=== PATIENT | female | born 1950 | race Caucasian/White ===

== ENCOUNTER 2022-04-13 20:54 | Inpatient (IN) | payer MEDICARE, SELFPAY ==
[2022-04-13 20:56] VITALS: BP 143/81; PULSE 74; RESP 22; TEMP 36.7; O2SAT 95; BMI 32.8
[2022-04-13 20:59] VITALS: O2SAT 99
--- NOTE | 2022-04-13 21:21 | ED.VIS.CHEST ---
HPI History of Present Illness Chief Complaint: Chest Pain Informant: patient Onset/Context/Timing Onset: Today Activity at onset: sudden Timing: Intermittent Quality: Positive for Dull Location: Substernal Worsened By: Nothing Relieved By: Nothing Associated Symptoms: Positive for Nausea, Vomiting and Lightheadedness Narrative Narrative: Patient presents with chest pain that began today. Patient states it began suddenly. Patient states that her pacemaker defibrillator fired today 3 times. Patient states she was sitting and resting when this began. Patient states nothing makes it worse and nothing makes it better. Patient admits to some nausea and vomiting. Patient admits to some pain in her back. Patient admits to some lightheadedness patient was recently hospitalized at [facility] where she had her pacemaker defibrillator placed. Patient was discharged to [facility]. [facility] Medical History (Updated 04/14/22 @ 00:[address] Hung Tovar, DO) Chronic back pain Coronary artery disease Presence of combination internal cardiac defibrillator (ICD) and pacemaker Home Medications amiodarone 200 mg tablet 200 mg 1XD 04/14/22 [History Last Taken Unknown] doxycycline monohydrate 100 mg tablet 100 mg PO BID 04/14/22 [History Last Taken Unknown] duloxetine 30 mg capsule,delayed release (Cymbalta) 30 mg PO BID 04/14/22 [History Last Taken Unknown] furosemide 40 mg tablet (Lasix) 40 mg PO BID 04/14/22 [History Last Taken Unknown] levothyroxine 25 mcg tablet (Synthroid) 25 mcg PO DAILY 04/14/22 [History Last Taken Unknown] metolazone 2.5 mg tablet 2.5 mg PO QODAY 04/14/22 [History Last Taken Unknown] mexiletine 150 mg capsule 150 mg BID 04/14/22 [History Last Taken Unknown] midodrine 10 mg tablet 10 mg PO TID 04/14/22 [History Last Taken Unknown] omeprazole 40 mg capsule,delayed release 40 mg PO DAILY 04/14/22 [History Last Taken Unknown] potassium chloride 20 mEq tablet,extended release 40 meq PO BID 04/14/22 [History Last Taken Unknown] pravastatin 40 mg tablet 40 mg PO QHS 04/14/22 [History Last Taken Unknown] spironolactone 50 mg tablet (Aldactone) 50 mg PO 1XD 04/14/22 [History Last Taken Unknown] sucralfate 1 gram tablet (Carafate) 1 g PO 1XD 04/14/22 [History Last Taken Unknown] tamsulosin 0.4 mg capsule (Flomax) 0.4 mg PO QHS 04/14/22 [History Last Taken Unknown] vancomycin 250 mg/5 mL oral syringe (FOR ORAL USE ONLY) 125 mg PO Q6H 04/14/22 [History Last Taken Unknown] warfarin 2.5 mg tablet 2.5 mg PO DAILY 04/14/22 [History Last Taken Unknown] Allergy/AdvReac Type Severity Reaction Status Date / Time carvedilol [From Coreg] Allergy NEEDS Verified 04/13/22 20:59 FOLLOW-UP Gadolinium-MRI Contrast Allergy NEEDS Verified 04/13/22 20:59 Medium FOLLOW-UP [contrast dye] Social History Smoking Status: Former smoker ROS ROS ED Constitutional Constitutional ED: Denies chills or fever(s) Eyes Eyes: Denies blurry vision or change in vision ENT ENT ED: Denies rhinorrhea or sore throat Cardiovascular Cardiovascular: Reports chest pain and palpitations Respiratory/Chest Respiratory/Chest: Denies cough or dyspnea Gastrointestinal Gastrointestinal: Denies abdominal pain, nausea or vomiting Genitourinary Genitourinary ED: Reports dysuria; Denies hematuria Musculoskeletal Musculoskeletal: Reports back pain and neck pain Integumentary Reports rash; Denies abscess Neurologic Neurologic: Denies headache(s) or weakness Allergic/Immunologic Allergic/Immunologic ED: Denies mouth swelling or urticaria EXAM Physical Exam Const Vital Signs: 04/13/22 20:56 04/13/22 21:01 04/13/22 21:33 Temperature 98.1 F Temperature Source Temporal Pulse Rate 74 74 Respiratory Rate 22 H 15 Respiratory Effort Short of Breath Blood Pressure 143/81 H 131/100 H Blood Pressure Mean 101 110 Blood Pressure Source Blood Pressure Position Blood Pressure Location Pulse Ox 95 99 Oxygen Delivery Method Room Air Room Air 04/13/22 20:59 04/13/22 23:02 04/13/22 23:08 Temperature 98.4 F Temperature Source Temporal Pulse Rate 71 71 Respiratory Rate 17 18 Respiratory Effort Blood Pressure 116/98 H 116/98 H Blood Pressure Mean 104 104 Blood Pressure Source Monitor Blood Pressure Position Semi-Fowlers Blood Pressure Location Right Arm Pulse Ox 99 97 98 Oxygen Delivery Method Room Air Room Air Room Air 04/13/22 23:15 04/14/22 00:23 Temperature 98.1 F Temperature Source Temporal Pulse Rate 73 72 Respiratory Rate 16 19 H Respiratory Effort Blood Pressure 119/79 120/69 Blood Pressure Mean 92 86 Blood Pressure Source Monitor Blood Pressure Position Semi-Fowlers Blood Pressure Location Right Arm Pulse Ox 97 94 Oxygen Delivery Method Room Air Room Air Positive well nourished, well developed and obese General Appearance ED: well developed Nutritional Appearance: obese HEENT normocephalic and atraumatic Eyes PERRL and EOMs intact bilaterally Neck supple and no JVD Chest Wall palpation of chest normal Resp normal respiratory effort and clear to auscultation bilaterally Effort and Inspection: Negative for respiratory distress Cardio regular rate and regular rhythm GI normal to inspection, nondistended, normoactive bowel sounds, soft to palpation, non-tender and non-distended Extremity normal to inspection General Extremety ED: Negative for edema or tenderness General Extremity: Negative for edema Neuro oriented x3, CN's II-XII intact bilaterally and no sensory deficits noted Sensorium / Orientation: awake and alert Motor Exam: strength 5/5 throughout Psych mental status grossly normal MDM MDM MDM Narrative Medical decision making narrative: Patient's pacemaker was interrogated. Patient had 7 shocks today. Patient then converted back to sinus rhythm with each defibrillation. Patient had an episode here where she had a short run of ventricular tachycardia. Patient then converted spontaneously back to a sinus rhythm. EKG will be obtained to assess for cardiac dysrhythmia and ischemia. CBC will be obtained to assess for leukocytosis and anemia. Basic metabolic profile will be obtained to assess for electrolyte abnormality and renal function. Magnesium will be ordered to assess for hypomagnesemia. Troponin will be obtained to assess for cardiac ischemia. PA and lateral chest x-ray will be obtained to assess for pneumonia and congestive heart failure. PT with INR and PTT will be obtained to assess for coagulation status. Lab Data Attestation: I reviewed the patient's lab results. Lab results narrative: CBC was reviewed and showed a mild leukocytosis of 11.6. The remainder was within normal limits. PT was INR and PTT were reviewed. Pro time was 22.4 and INR is 2.0. PTT is 31.5. Basic metabolic profile was reviewed. Sodium was 129, chloride was 88, potassium was 2.5, BUN was 20 and creatinine was 1.07. Glucose was slightly elevated at 128. High-sensitivity troponin was reviewed and was 22. Labs: Laboratory Results - last 24 hr 04/13/22 04/13/22 04/13/22 21:05 21:05 21:05 WBC 11.6 H RBC 4.49 Hgb 13.1 Hct 38.9 MCV 86.6 MCH 29.2 MCHC 33.7 D RDW Std Deviation 51.4 H RDW Coeff of Em 16.3 H Plt Count 260 MPV 9.2 Immature Gran % (Auto) 1.100 H Neut % (Auto) 69.4 Lymph % (Auto) 17.9 L Fountain % (Auto) 9.9 Eos % (Auto) 1.0 Baso % (Auto) 0.7 Absolute Neuts (auto) 8.0 H Absolute Lymphs (auto) 2.07 Nucleated RBC % 0 PT 22.4 H INR 2.0 APTT 31.5 Sodium 129 L Potassium 2.5 L* Chloride 88 L Carbon Dioxide 29.0 Anion Gap 12 BUN 20 H Creatinine 1.07 H Estim Creat Clear Calc 48.25 Est GFR (MDRD) Af Amer 65 Est GFR (MDRD) Non-Af 54 L BUN/Creatinine Ratio 18.7 Glucose 128 H Calcium 7.6 L Magnesium 1.1 L Troponin I High Sens 22 Radiography Chest X-Ray - ED: 2 View, Read by ED Physician, Read by Radiologist, No Acute Disease and Chronic Changes Diagnostic Testing: Clinical Impression(s) from Imaging Studies Chest X-Ray 04/13/22 22:07 IMPRESSION: Pleural effusions. Otherwise no acute findings. Electronically Signed: Elizabeth Garcia MD at 22:31 EST Reading Location ID and State: [id number] / Tel , Service support , EKG Initial EKG: Attestation: I personally reviewed and interpreted this EKG as follows: Interpretation: Paced (70) and Non-Specific ST Changes Comments: EKG was obtained. On my interpretation, it shows a ventricular paced rhythm with a rate of 70. QRS interval was slightly prolonged at 168 ms. QTc interval was 514 ms. There is left axis deviation at -38. There are no acute ST or T wave changes noted. There are no prior EKGs available for comparison. Prior: No Prior Treatment and Re-Evaluation Narrative: The pacemaker defibrillator was interrogated. At the time of the interrogation patient was noted to have 7 defibrillations today. Patient is supposed to be on amiodarone and mexiletine. Here in the emergency department, patient had approximately 6 more defibrillations. Patient was given oral and IV potassium here. Patient was given a dose of amiodarone and was started on amiodarone drip. Case was discussed with the transfer line at [facility]. When the patient was discharged from [facility] recently, there was question as to whether the patient wanted to be made hospice or wanted further treatment. I discussed this with the patient and her family. At this time, patient wants everything done except to be intubated. I discussed with the patient if she would want chest compressions if her heart would completely stop and she said she would want that. The transfer center for [facility] will attempt to find the patient a bed at [facility]. Patient was accepted to the ICU waiting list to the service of Dr. Carrasco at [facility] in [place]. However, transfer center stated that patient would not be able to be transferred there tonight since they have no beds available at this time. Transfer center said that possibly tomorrow evening a bed may become available. I discussed the case with the hospitalist here. Patient will be admitted here pending transfer to [facility]. Patient and family understand and are agreeable with the plan. All questions were answered. Critical Care Time Critical Care Time: Yes Critical care time (excluding procedures): 30-74 minutes (37), Including time spent:, Discussing w/Patient &/or Family/Cigar Inspector, Discussing w/Consultants, Arranging Admission or Transfer and Performing Direct Patient Care at Bedside Discharge Plan Triage Chief Complaint: Chest Pain ED Provider: Hung Tovar Dx/Rx/DC Orders Clinical Impression: Ventricular fibrillation, Hypokalemia, Hypomagnesemia Prescriptions: No Action furosemide [Lasix] 40 mg Tablet 40 mg PO BID metolazone 2.5 mg Tablet 2.5 mg PO QODAY pravastatin 40 mg Tablet 40 mg PO QHS amiodarone 200 mg tablet 200 mg 1XD sucralfate [Carafate] 1 gram Tablet 1 g PO 1XD warfarin [Coumadin] 2.5 mg Tablet 2.5 mg PO DAILY omeprazole 40 mg Capsule,Delayed Release(Dr/Ec) 40 mg PO DAILY doxycycline monohydrate 100 mg Tablet 100 mg PO BID levothyroxine [Synthroid] 25 mcg Tablet 25 mcg PO DAILY tamsulosin [Flomax] 0.4 mg Capsule 0.4 mg PO QHS mexiletine 150 mg Capsule 150 mg BID spironolactone [Aldactone] 50 mg Tablet 50 mg PO 1XD midodrine 10 mg Tablet 10 mg PO TID Rx Instructions: do not give last dose of day after 6PM or within 4 hrs of bedtime duloxetine [Cymbalta] 30 mg Capsule,Delayed Release(Dr/Ec) 30 mg PO BID vancomycin 250 mg/5 mL Syringe 125 mg PO Q6H potassium chloride 20 mEq Tablet Extended Release 40 meq PO BID Primary Care Provider: Daysi Perea Referrals: [facility] Doctor,Out of [Non-Staff] - Disposition Disposition: Acute Care Hospital Discharge Location: [facility]
[2022-04-13 21:33] VITALS: BP 131/100; PULSE 74; RESP 15; O2SAT 99
--- NOTE | 2022-04-13 21:33 | ED.RN ---
Called [facility] and they are going to fax over the signed DNR for patient
[2022-04-13] MEDS: Ondansetron 4 MG/2 ML Vial IV (21:47)
[2022-04-13 21:49] LABS: Absolute Lymphocyte Count 2.07 X10^3/uL (0.83-4.51); Basophil# 0.08 X10^3/uL; Basophil% 0.7 % (0-1); Eosinophil# 0.12 X10^3/uL; Hematocrit 38.9 % (37-47); Hemoglobin 13.1 g/dL (12.0-15.0); Lymphocyte # 2.07 X10^3/ul (0.83-4.51); Lymphocyte % 17.9 % (19-41); Mean Corp Hgb Conc 33.7 g/dL (32-36); Mean Corpuscular Hgb 29.2 pg (27.0-32.0); Mean Corpuscular Volume 86.6 fL (81-99); Mean Platelet Vol. 9.2 fl (6.2-12.0); Monocyte# 1.15 X10^3/uL; Monocyte% 9.9 % (0-10); NRBC Flagged by Analyzer 0 % (0-5); Neutrophil # 8.01 X10^3/uL (2.7-7.7); Neutrophil % 69.4 % (47-70); Platelet Count 260 K/mm3 (150-450); RBC Distribution Width CV 16.3 % (11.6-14.6); RBC Distribution Width SD 51.4 fl (35.1-43.9); Red Blood Count 4.49 M/mm3 (4.2-5.4); White Blood Count 11.6 K/mm3 (4.4-11.0)
[2022-04-13] MEDS: Morphine 2 MG/ML Syringe IV (21:58)
[2022-04-13 22:01] LABS: Prothrombin Time (Protime)PT. 22.4 SECONDS (11.7-14.9)
[2022-04-13 22:02] LABS: Partial Thromboplast Time 31.5 Seconds (24.1-36.2)
--- NOTE | 2022-04-13 22:07 | RAD_ITS ---
INDICATION: chest pain EXAMINATION/TECHNIQUE: X-RAY - XR Chest 2 Views COMPARISON: None. FINDINGS: LINES/DEVICES: Cardiac pacemaker/AICD. Wires are intact. LUNGS: Small bilateral pleural effusions. No vascular congestion or pulmonary consolidation. No pneumothorax. MEDIASTINUM AND CARDIOVASCULAR STRUCTURES: Cardiac silhouette not enlarged. Central airways and mediastinal contour are unremarkable. BONES AND SOFT TISSUES: Unremarkable. RAD/Chest PA and Lateral IMPRESSION: Pleural effusions. Otherwise no acute findings. Electronically Signed: Elizabeth Garcia MD at 22:31 EST Reading Location ID and State: [id number] / Tel , Service support ,
[2022-04-13 22:15] LABS: Anion Gap 12 (5-15); BUN 20 mg/dL (7-18); BUN/Creat Ratio 18.7 RATIO (10-20); Calcium,Total 7.6 mg/dL (8.5-10.1); Chloride 88 mmol/L (98-107); Creatinine, Serum 1.07 mg/dL (0.55-1.02); EST Glomerular Filtration Rate 54 mL/min (>60); Est Glom Filt Rate - Afr Amer 65 mL/min (>60); Estimated Creatinine Clearance 48.25 ml/min; Glucose 128 mg/dL (74-106); Magnesium 1.1 mg/dL (1.6-2.6); Potassium 2.5 mmol/L (3.5-5.1); Sodium Level 129 mmol/L (136-145); Troponin-I HS (w/2H Reflex) 22 pg/mL (3.0-54.0)
[2022-04-13] MEDS: Potassium Chloride 10mEq/100mL 10 MEQ/100 ML IV.SOLN. 100 MEQ IV BOLUS ×2 (22:54→23:56)
[2022-04-13 23:02] VITALS: BP 116/98; PULSE 71; RESP 17; TEMP 36.9; O2SAT 97
[2022-04-13 23:08] VITALS: BP 116/98; PULSE 71; RESP 18; O2SAT 98
[2022-04-13 23:15] VITALS: BP 119/79; PULSE 73; RESP 16; TEMP 36.7; O2SAT 97
[2022-04-13] MEDS: Amiodarone 360 MG in Dextrose 5% Viaflo Bag 192.8 ML 16.7 MG CONT INF (23:15)
[2022-04-13 23:40] LABS: Reflex Troponin-HS? (from REC) Y
--- NOTE | 2022-04-13 23:46 | PCM.HP.STD ---
HPI - General General Date of Admission: 04/13/22 Date of Service: 04/13/22 Chief Complaint: Chest pain, device firing. HPI Narrative The patient is a 71 y/o F w/ PMHx: COPD, Systolic CHF/Cardiomyopathy unclear type, HTN, HLD, Anxiety and Depression, Nonobstructive CAD, Diabetes mellitus type II, GERD, Suspected PAF s/p prior attempted ablation on coumadin therapy, Ongoing issues with urinary retention with chronic indwelling martinez catheter over the last several weeks on flomax, Recent Dx clostridium difficile colitis on oral vancomycin, Ventricular arrhythmia status post AICD placement on amiodarone as well as mexiletine with several issues over the last 2 months of recurrent device firing requiring several readjustments with recent discharge to assisted home from [facility] with similar presentation with significant electrolyte disturbances who now presents to the [facility] ED on 04/13/22 secondary to recurrent near syncopal sensation with lightheadedness, dizziness with associated nausea as well as emesis with recurrent ventricular arrhythmia prompting her device to fire with at least 7 times firing at the facility prior to ED presentation and ongoing while in the ED noted to have occurred at least 6-7 times prompting facility transition ED for evaluation. Patient notes that once her rhythm resolves her symptoms usually improve when she feels returned to baseline. Work-up in the ED included T98.1, heart rate 74, BP 143/81, respiratory rate 22, 95% room air, intermittent device firing while in the ED with near syncopal sensations, CBC with WC 11.6, hemoglobin 13.1, platelet 260 with increased immature granulocytes with left shift, coags with INR 2.0, BMP with sodium 129, potassium 2.5, chloride 88, BUN/creatinine 20/1.07, glucose 128, calcium 7.6, magnesium 1.1, troponin initially 22 with repeat delta 27, chest x-ray with small bilateral pleural effusions otherwise with no acute cardiopulmonary findings, EKG with paced, nonspecific ST changes with no acute evidence of ischemia with no comparison available, AICD/pacemaker device interrogated while in the emergency room with evidence of significant ventricular arrhythmia. In the ED patient ministered full-strength aspirin therapy, magnesium 4 mg IV x1, potassium 40 mill equivalent p.o. x1, Zofran 4 mg IV x1, morphine 2 mg IV x1, amiodarone bolus and drip. ED physician did discuss case with [facility] and patient was accepted by Dr. Franklin however unfortunately there were no beds and [place] noted that likely there may not be any availability for 24 to 48 hours therefore patient transiently admitted to [facility] pending transfer bed availability. In the ED lengthy discussions ensued and patient does report that with most recent evaluation at [facility] she had at that time been evaluated by hospice but was of not felt an appropriate candidate but this is believed to be set somewhat of a confusion as patient is obviously appropriate for hospice but likely she had not been at that time appropriate for an inpatient hospice setting. Patient had even discussed discontinuation of her AICD device mode but this has been deferred at her discharge for unclear reasons. During lengthy discussions in the ED patient confirms she is DNR CCA no intubation but is interested again with discussions with hospice and would consider even not being transferred as currently arranged with hospice home transition if able with discontinuation of the AICD device settings. [facility] Medical History (Updated 04/14/22 @ 02:[address] Abbey Cunningham MD) Anxiety and depression Cardiomyopathy Chronic back pain COPD (chronic obstructive pulmonary disease) Coronary artery disease Diabetes mellitus, type 2 Former tobacco use HLD (hyperlipidemia) HTN (hypertension) Hypothyroidism PAF (paroxysmal atrial fibrillation) Presence of combination internal cardiac defibrillator (ICD) and pacemaker Systolic CHF Ventricular arrhythmia Home Medications amiodarone 200 mg tablet 200 mg 1XD 04/14/22 [History Last Taken Unknown] doxycycline monohydrate 100 mg tablet 100 mg PO BID 04/14/22 [History Last Taken Unknown] duloxetine 30 mg capsule,delayed release (Cymbalta) 30 mg PO BID 04/14/22 [History Last Taken Unknown] furosemide 40 mg tablet (Lasix) 40 mg PO BID 04/14/22 [History Last Taken Unknown] levothyroxine 25 mcg tablet (Synthroid) 25 mcg PO DAILY 04/14/22 [History Last Taken Unknown] metolazone 2.5 mg tablet 2.5 mg PO QODAY 04/14/22 [History Last Taken Unknown] mexiletine 150 mg capsule 150 mg BID 04/14/22 [History Last Taken Unknown] midodrine 10 mg tablet 10 mg PO TID 04/14/22 [History Last Taken Unknown] omeprazole 40 mg capsule,delayed release 40 mg PO DAILY 04/14/22 [History Last Taken Unknown] potassium chloride 20 mEq tablet,extended release 40 meq PO BID 04/14/22 [History Last Taken Unknown] pravastatin 40 mg tablet 40 mg PO QHS 04/14/22 [History Last Taken Unknown] spironolactone 50 mg tablet (Aldactone) 50 mg PO 1XD 04/14/22 [History Last Taken Unknown] sucralfate 1 gram tablet (Carafate) 1 g PO 1XD 04/14/22 [History Last Taken Unknown] tamsulosin 0.4 mg capsule (Flomax) 0.4 mg PO QHS 04/14/22 [History Last Taken Unknown] vancomycin 250 mg/5 mL oral syringe (FOR ORAL USE ONLY) 125 mg PO Q6H 04/14/22 [History Last Taken Unknown] warfarin 2.5 mg tablet 2.5 mg PO DAILY 04/14/22 [History Last Taken Unknown] Allergy/AdvReac Type Severity Reaction Status Date / Time carvedilol [From Coreg] Allergy NEEDS Verified 04/13/22 20:59 FOLLOW-UP Gadolinium-MRI Contrast Allergy NEEDS Verified 04/13/22 20:59 Medium FOLLOW-UP [contrast dye] Family History (Updated 04/14/22 @ 02:[address] Abbey Cunningham MD) Mother Heart disease Father Heart disease Son Heart disease CHF (congestive heart failure) Surgical History (Updated 04/14/22 @ 02:[address] Abbey Cunningham MD) History of cardiac radiofrequency ablation History of hysterectomy History of implantable cardioverter-defibrillator (ICD) placement S/P placement of cardiac pacemaker Social History (Updated 04/14/22 @ 02:[address] Abbey Cunningham MD) household members: spouse Smoking Status: Former smoker how long ago did patient quit smoking: Quit ~ 25 year prior, smoked 1 ppd since teen until quit. alcohol intake: never substance use type: does not use ROS ROS Narrative Admission Review of Systems: CONSTITUTIONAL: No weight loss, fever, chills, + weakness or fatigue. HEENT: + Lightheadedness, dizziness. Eyes: No visual loss, blurred vision, double vision or yellow sclerae. Ears, Nose, Throat: No hearing loss, sneezing, congestion, runny nose or sore throat. SKIN: No rash or itching, lesions, wounds. CARDIOVASCULAR: + Lightheadedness, dizziness, edema, palpitations, syncopal episodes, chest discomfort with device firing as expected, no orthopnea. RESPIRATORY: No shortness of breath, cough or sputum, wheezing, hemoptysis. GASTROINTESTINAL: + anorexia, nausea, vomiting, no diarrhea, abdominal pain, melena, BRBPR. GENITOURINARY: + Urinary retention with chronic indwelling Martinez. No dysuria, frequency, urgency. NEUROLOGICAL: + Headache, dizziness, lightheadedness, syncopal events. No paralysis, ataxia, numbness or tingling in the extremities, focal weakness, change in bowel or bladder control, seizure. MUSCULOSKELETAL: + muscle, back pain, joint pain or stiffness. HEMATOLOGIC: + anemia, bleeding or bruising. LYMPHATICS: No enlarged nodes. No history of splenectomy. PSYCHIATRIC: + history of depression or anxiety. ENDOCRINOLOGIC: No reports of sweating, cold or heat intolerance. No polyuria or polydipsia. ALLERGIES: No history of asthma, hives, eczema or rhinitis. Vital Signs Vital Signs Vital Signs: 04/13/22 20:56 04/13/22 21:01 04/13/22 21:33 Temperature 98.1 F Temperature Source Temporal Pulse Rate 74 74 Respiratory Rate 22 H 15 Respiratory Effort Short of Breath Blood Pressure 143/81 H 131/100 H Blood Pressure Mean 101 110 Blood Pressure Source Blood Pressure Position Blood Pressure Location Pulse Ox 95 99 Oxygen Delivery Method Room Air Room Air 04/13/22 20:59 04/13/22 23:02 04/13/22 23:08 Temperature 98.4 F Temperature Source Temporal Pulse Rate 71 71 Respiratory Rate 17 18 Respiratory Effort Blood Pressure 116/98 H 116/98 H Blood Pressure Mean 104 104 Blood Pressure Source Monitor Blood Pressure Position Semi-Fowlers Blood Pressure Location Right Arm Pulse Ox 99 97 98 Oxygen Delivery Method Room Air Room Air Room Air 04/13/22 23:15 Temperature 98.1 F Temperature Source Temporal Pulse Rate 73 Respiratory Rate 16 Respiratory Effort Blood Pressure 119/79 Blood Pressure Mean 92 Blood Pressure Source Monitor Blood Pressure Position Semi-Fowlers Blood Pressure Location Right Arm Pulse Ox 97 Oxygen Delivery Method Room Air Weight Weight: 209 lb 3.499 oz Body Mass Index (BMI) 32.8 Physical Exam Narrative Physical Examination: General: Awake, alert, oriented x 3 and cooperative, seated upright in ED bed, fatigued, ill-appearing individual, appears older than stated age. Skin: Normal color, normal turgor, no icterus, no cyanosis except occasional staged ecchymoses, bilateral lower extremity venous stasis skin changes. HEENT: AT/NC, EOMI, PERRLA, mildly dry MM, no carotid bruits or JVD noted. Lungs: Diminished, greater bases, no evidence of any respiratory distress, no rales, ronchi or wheezing. Heart: Currently regular/paced; no gallop, rub audible. Abdomen: Soft, NTTP, very mild distention with no fluid wave, distant normal BS, positive HM. Extremities: No cyanosis, no clubbing, bilateral pedal 2 mid hoang 2+ pitting edema which is chronic for patient she notes Neurological: Patient awake, alert, oriented as noted, cognitive function appears intact; pupils equally reactive to light and accommodation, cranial nerves II-XII grossly normal, moving all 4 extremities, no focal deficits, strength severely global decrease secondary to acute presentation and underlying comorbidities. Psychiatric: Affect appears flat, fatigued, no acute evidence of depressive or anxiety feelings but does have underlying history. Results Lab / Micro Data Result Diagrams: 04/13/22 21:05 04/13/22 21:05 Labs: Laboratory Results - last 24 hr 04/13/22 21:05: WBC 11.6 H, RBC 4.49, Hgb 13.1, Hct 38.9, MCV 86.6, MCH 29.2, MCHC 33.7 D, RDW Std Deviation 51.4 H, RDW Coeff of Em 16.3 H, Plt Count 260, MPV 9.2, Immature Gran % (Auto) 1.100 H, Neut % (Auto) 69.4, Lymph % (Auto) 17.9 L, [place] % (Auto) 9.9, Eos % (Auto) 1.0, Baso % (Auto) 0.7, Absolute Neuts (auto) 8.0 H, Absolute Lymphs (auto) 2.07, Nucleated RBC % 0 04/13/22 21:05: PT 22.4 H, INR 2.0, APTT 31.5 04/13/22 21:05: Sodium 129 L, Potassium 2.5 L*, Chloride 88 L, Carbon Dioxide 29.0, Anion Gap 12, BUN 20 H, Creatinine 1.07 H, Estim Creat Clear Calc 48.25, Est GFR (MDRD) Af Amer 65, Est GFR (MDRD) Non-Af 54 L, BUN/Creatinine Ratio 18.7, Glucose 128 H, Calcium 7.6 L, Magnesium 1.1 L, Troponin I High Sens 22 Radiology Impression Chest X-Ray 04/13/22 22:07 IMPRESSION: Pleural effusions. Otherwise no acute findings. Electronically Signed: Elizabeth Garcia MD at 22:31 EST Reading Location ID and State: [id number] / Tel , Service support , Assessment & Plan Assessment/Plan (1) Ventricular fibrillation: PLAN: Plan The patient is a 71 y/o F w/ PMHx: COPD, Systolic CHF/Cardiomyopathy unclear type, HTN, HLD, Anxiety and Depression, Nonobstructive CAD, Diabetes mellitus type II, GERD, Suspected PAF s/p prior attempted ablation on coumadin therapy, Ongoing issues with urinary retention with chronic indwelling martinez catheter over the last several weeks on flomax, Recent Dx clostridium difficile colitis on oral vancomycin, Ventricular arrhythmia status post AICD placement on amiodarone as well as mexiletine with several issues over the last 2 months of recurrent device firing requiring several readjustments with recent discharge to assisted home from [facility] with similar presentation with significant electrolyte disturbances who now presents to the [facility] ED on 04/13/22 secondary to recurrent near syncopal sensation with lightheadedness, dizziness with associated nausea as well as emesis with recurrent ventricular arrhythmia prompting her device to fire with at least 7 times firing at the facility. #1. Recurrent near syncope and syncopal events secondary to cardiac ventricular rhythm/ventricular fibrillation status post prior AICD placement with recurrent device firing: We will admit to PCU given lengthy discussions and status DNR CCA, no intubation, per discussion with patient will request hospice evaluation as some patient and family consideration for potentially hospice transition if able as had previously been considered not a candidate for unclear reasons with patient desire to potentially turn off for a sleep device component, will in the interim continue amiodarone drip pending discussions with their service, will maintain on telemetry, cycle cardiac enzymes, magnesium requested, TSH pending, maintain on fall and aspiration precautions, request cardiology involvement pending transfer or if patient does transition to hospice may defer. #2. Hypokalemia, hypomagnesemia: Admission K+ 2.5, magnesium 1.1, supplementation ordered in edition in the ED, will continue to aggressively repeat these levels and re-dose as needed as from discussion with patient significantly associated with recurrent reticular look arrhythmia with device firing prior. #3. Recurrent urinary retention with chronic indwelling Martinez catheter: Patient during recent hospitalizations has had serial issues with urinary retention, will continue chronic current Martinez, wound assessment as to when last recently changed, continue Flomax regimen, encourage follow-up outpatient with urology to further assess. #4. Recent C. difficile colitis: We will continue patient home oral vancomycin regimen, per discussion diarrhea is completely resolved and has formed bowel movements, if any recurrent antibiotic necessity may benefit from lactobacillus additionally. Patient currently is on PPI and both neatly transition office for remaining to de-escalate given this history. #5. Chronic systolic CHF/cardiomyopathy, unclear type: Per transfer center patient most recent EF 21%, given planned transition to outside facility will hold off on any repeat echocardiogram, records requested, can you come in with INR trending, spironolactone, Lasix, metolazone, statin therapy, not on beta-alex therapy per review of current list nor NATE inhibitor/ARB. #6. Nonobstructive CAD: We will continue Coumadin with INR trending, statin, not on beta-alex nor NATE inhibitor/ARB. #7. PAF: We will continue current drip, continue Coumadin with INR trending, currently 2.0 upon presentation. #8. Chronic COPD: Will maintain on oxygen with wean as tolerated to room air, initiate on ATC budesonide therapy, PRN albuterol, HOB, IS parameters. #9. Diabetes mellitus type II: Hold oral home regimen, ADA diet, accu checks w/ ISS. #10. Hypertension: Continue home regimen including spironolactone, metolazone, Lasix, PRN hydralazine. #11. Hyperlipidemia: We will continue patient on statin therapy. #12. Hypothyroidism: We will continue patient on levothyroxine regimen. #13. Anxiety and depression: We will continue home Cymbalta regimen. #14. GERD: We will continue patient on PPI and sucralfate but as noted above given C. difficile colitis history may need to de-escalate. #15. DVT prophylaxis: SCDs, continue patient Coumadin with INR trending. #16. CODE status: Patient VIOLETTE is her who is present and living will is currently in place. Discussed CODE status at length including difference between FULL code, DNR-CCA and DNR-CC status. Following discussions about the differences in these status, requested DNR-CCA, no intubation status; however, discussions at length ensued and patient is interested in hospice potential transition with planned hospice consultation. Advanced Care Planning Face to Face Time: 16 minutes. Admission Evaluation Time spent evaluating chart, patient history, patient evaluation, care planning and discussion with specialists: 78 minutes. Charges/Coding Visit Charges Inpatient E&M: 50996 Init Hosp L3 Procedures Hospitalists Procedures: 56197 Advncd Care Plan 30 Min
[2022-04-14] VITALS (19 sets, daily range): BP systolic 101–120; BP diastolic 65–100; PULSE 70–75; RESP 12–31; TEMP 36.2–37.7; O2SAT 92–99; BMI 32.6
[2022-04-14] MEDS: Magnesium Sulfate 4gm/100mL 4 GM/100 ML IV.SOLN. IV (00:30)
[2022-04-14 00:39] LABS: Troponin-I HS 27 pg/mL (3.0-54.0)
[2022-04-14 01:57] LABS: Phosphorus 4.2 mg/dL (2.5-4.9)
[2022-04-14 03:20] LABS: Absolute Lymphocyte Count 0.71 X10^3/uL (0.83-4.51); Absolute Neutrophil Count 9.4 X10^3/uL (2.0-7.7); Basophil# 0.05 X10^3/uL; Basophil% 0.5 % (0-1); Eosinophil# 0.01 X10^3/uL; Eosinophils% 0.1 % (0-5); Hematocrit 35.8 % (37-47); Lymphocyte # 0.71 X10^3/ul (0.83-4.51); Lymphocyte % 6.4 % (19-41); Mean Corp Hgb Conc 33.5 g/dL (32-36); Mean Corpuscular Hgb 29.4 pg (27.0-32.0); Mean Corpuscular Volume 87.7 fL (81-99); Monocyte# 0.78 X10^3/uL; Monocyte% 7.1 % (0-10); NRBC Flagged by Analyzer 0 % (0-5); Neutrophil # 9.35 X10^3/uL (2.7-7.7); Neutrophil % 84.9 % (47-70); Platelet Count 184 K/mm3 (150-450); RBC Distribution Width CV 16.3 % (11.6-14.6); RBC Distribution Width SD 52.1 fl (35.1-43.9); Red Blood Count 4.08 M/mm3 (4.2-5.4)
[2022-04-14 03:32] LABS: International Normalized Ratio 1.9; Prothrombin Time (Protime)PT. 21.4 SECONDS (11.7-14.9)
[2022-04-14 03:43] LABS: Troponin-I HS 29 pg/mL (3.0-54.0)
[2022-04-14 03:55] LABS: ALB/GLOB Ratio 0.8 RATIO (0.9-2.4); AST(SGOT) 26 U/L (15-37); Alanine Aminotransfer ALT/SGPT 10 U/L (13-56); Albumin, Serum 1.9 g/dL (3.2-5.0); Alkaline Phosphatase 113 U/L (45-117); Anion Gap 9 (5-15); BUN 20 mg/dL (7-18); BUN/Creat Ratio 22.1 RATIO (10-20); Calcium,Total 6.8 mg/dL (8.5-10.1); Chloride 93 mmol/L (98-107); EST Glomerular Filtration Rate 66 mL/min (>60); Est Glom Filt Rate - Afr Amer 80 mL/min (>60); Estimated Creatinine Clearance 57.37 ml/min; Globulin 2.4 g/dL (2.2-4.2); Glucose 154 mg/dL (74-106); Magnesium 1.9 mg/dL (1.6-2.6); Protein, Total 4.3 g/dL (6.4-8.2); Sodium Level 129 mmol/L (136-145); Thyroid Stim Hormone (TSH) 7.84 uIU/mL (0.358-3.74)
--- NOTE | 2022-04-14 05:40 | NURSING ---
[facility] called for an update
[2022-04-14] MEDS: Vancomycin 125 MG/5 ML Susp PO.SYRINGE PO ×2 (06:24→11:35)
[2022-04-14] MEDS: Levothyroxine 25 MCG TABLET PO (06:25)
[2022-04-14] MEDS: 0.9% Saline Lock 10 ML Syringe IV ×2 (06:26→07:59)
[2022-04-14 06:55] LABS: Bedside Glucose 137 mg/dL (74-106)
[2022-04-14] MEDS: Ondansetron 4 MG/2 ML Vial IV (07:59)
[2022-04-14] MEDS: Midodrine HCl 5 MG Tablet 10 MG PO ×2 (08:00→11:35)
[2022-04-14] MEDS: Budesonide Respules 0.5 MG/2 ML AMPUL.NEB. INHALATION (08:23)
[2022-04-14] MEDS: Amiodarone 360 MG in Dextrose 5% Viaflo Bag 192.8 ML 16.7 MG CONT INF (08:27)
[2022-04-14] MEDS: Pantoprazole Sodium 40 MG Tablet PO (09:52)
[2022-04-14] MEDS: Metolazone 2.5 MG Tablet PO (09:52)
[2022-04-14] MEDS: Furosemide 40 MG Tablet PO (09:52)
[2022-04-14] MEDS: DULoxetine Hcl 30 MG Capsule PO (09:52)
[2022-04-14] MEDS: Mexiletine 150 MG Capsule PO (09:52)
[2022-04-14] MEDS: Spironolactone 50 MG Tablet PO (09:53)
[2022-04-14] MEDS: Potassium Chloride Oral Tablet 20 MEQ 40 MEQ PO (09:53)
[2022-04-14] MEDS: Sucralfate 1 GM Tablet PO (09:53)
--- NOTE | 2022-04-14 10:19 | PN.HOSP_ITS ---
Subjective Subjective Follow-up for near syncope and near syncopal events due to cardiac wide QRS arrhythmia, ventricular tachycardia status post AICD Objective Data Objective Data Vital Signs: Vital Signs Temp Pulse Resp BP Pulse Ox O2 Del Method O2 Flow Rate 97.1 F L 70 12 112/65 96 Room Air 2 04/14/22 08:00 04/14/22 10:00 04/14/22 10:00 04/14/22 10:00 04/14/22 10:00 04/14/22 10:00 04/14/22 09:17 Oxygen Flow Rate (L/min) 2 Oxygen Delivery Method Room Air Weight: 208 lb 8.917 oz Body Mass Index (BMI) 32.6 Intake & Output: Intake and Output for Last 24 Hours 04/12/22 04/13/22 04/14/22 23:59 23:59 23:59 Intake Total 203 / 203 253.64 / 253.64 Output Total 200 / 200 Balance 203 / 203 53.64 / 53.64 Lab / Micro Data Result Diagrams: 04/14/22 03:12 04/14/22 03:12 Labs: Laboratory Results - last 24 hr 04/13/22 21:05: WBC 11.6 H, RBC 4.49, Hgb 13.1, Hct 38.9, MCV 86.6, MCH 29.2, MCHC 33.7 D, RDW Std Deviation 51.4 H, RDW Coeff of Em 16.3 H, Plt Count 260, MPV 9.2, Immature Gran % (Auto) 1.100 H, Neut % (Auto) 69.4, Lymph % (Auto) 17.9 L, [place] % (Auto) 9.9, Eos % (Auto) 1.0, Baso % (Auto) 0.7, Absolute Neuts (auto) 8.0 H, Absolute Lymphs (auto) 2.07, Nucleated RBC % 0 04/13/22 21:05: PT 22.4 H, INR 2.0, APTT 31.5 04/13/22 21:05: Sodium 129 L, Potassium 2.5 L*, Chloride 88 L, Carbon Dioxide 29.0, Anion Gap 12, BUN 20 H, Creatinine 1.07 H, Estim Creat Clear Calc 48.25, Est GFR (MDRD) Af Amer 65, Est GFR (MDRD) Non-Af 54 L, BUN/Creatinine Ratio 18.7, Glucose 128 H, Calcium 7.6 L, Magnesium 1.1 L, Troponin I High Sens 04/14/22 00:04: Troponin I High Sens 04/14/22 00:04: Phosphorus 4.2 04/14/22 03:12: WBC 11.0, RBC 4.08 L, Hgb 12.0, Hct 35.8 L, MCV 87.7, MCH 29.4, MCHC 33.5, RDW Std Deviation 52.1 H, RDW Coeff of Em 16.3 H, Plt Count 184, MPV 9.0, Immature Gran % (Auto) 1.000 H, Neut % (Auto) 84.9 H, Lymph % (Auto) 6.4 L, [place] % (Auto) 7.1, Eos % (Auto) 0.1, Baso % (Auto) 0.5, Absolute Neuts (auto) 9.4 H, Absolute Lymphs (auto) 0.71 L, Nucleated RBC % 0 04/14/22 03:12: PT 21.4 H, INR 1.9 04/14/22 03:12: Sodium 129 L, Potassium 3.0 L, Chloride 93 L, Carbon Dioxide 27.0, Anion Gap 9, BUN 20 H, Creatinine 0.90, Estim Creat Clear Calc 57.37, Est GFR (MDRD) Af Amer 80, Est GFR (MDRD) Non-Af 66, BUN/Creatinine Ratio 22.1 H, Glucose 154 H, Calcium 6.8 L, Magnesium 1.9, Total Bilirubin 0.50, AST 26, ALT 10 L, Alkaline Phosphatase 113, Total Protein 4.3 L, Albumin 1.9 L, Globulin 2.4, Albumin/Globulin Ratio 0.8 L, TSH 7.84 H 04/14/22 03:12: Troponin I High Sens 04/14/22 06:24: POC Glucose 137 H Radiography Diagnostic Testing: Radiology Impression Chest X-Ray 04/13/22 22:07 IMPRESSION: Pleural effusions. Otherwise no acute findings. Electronically Signed: Elizabeth Garcia MD at 22:31 EST Reading Location ID and State: [id number] / Tel , Service support , Physical Exam Narrative Seen and examined. History taken from the patient, her and daughter near the bedside. Patient has been doing relatively baseline until January when she fell down and had compression fracture of lumbar spine. Thereafter she went downhill with heart failure exacerbation and was admitted to multiple hospitals. She had AICD for past many years and was recently upgraded in [facility], exact procedure unclear. Since then she gets shocks. She was recently discharged from [facility] to [facility] a week ago. Yesterday she had 15-20 shocks as per the patient. She follows Dr. Pearce, outside labourers. Patient further said she had been fighting with EF 20% for about 3035 years but recently decreased to 10%. They agreed for hospice care consult. Physical exam: General: Alert, Oriented x3, Cooperative HEENT: Atraumatic, PERRLA, EOMI, Normocephalic Oral: Oral mucosa moist. No Gingival or Mucosal Lesions/ Ulcerations Neck: Supple, No JVD, Negative Carotid Bruits Lungs: Air entry diminished in bilateral lung bases. No crepitation/rhonchi Cardiovascular: Left-sided AICD. Surgical scar well-healed. Paced rhythm on director of cardiac rehabilitation. No murmurs Abdomen: Bowel Sounds Present, Soft, Non Tender, Non-Distended : No renal angle tenderness. No suprapubic tenderness. Extremities: Mild to + bilateral ankle edema, Capillary Refill Less than 3 Seconds Skin: No rashes, No breakdown Musculoskeletal: No Tenderness to Palpation of Joints or Extremities, muscle strength 4+/5 at knee and hip joints. Bilateral degenerative arthritis. Neurological: Cranial nerves II-XII grossly intact, DTR 2+/4 and Symmetrical, Neuro grossly intact Psych/Mental Status: Normal Affect, Appropriate. Assessment & Plan Assessment/Plan (1) Ventricular fibrillation: PLAN: Plan The patient is a 71 y/o F was admitted with chest pain sudden onset with defibrillated fired about 15-20 times on the day of admission. Chest pain started at sitting position. Patient also some mild nausea and vomiting. She had recent AICD inserted during recent hospitalization at [facility] and was discharged to [facility] #1. Recurrent near syncope and syncopal events secondary to cardiac ventricular rhythm/ventricular fibrillation status post prior AICD placement with recurrent device firing: Patient is being admitted in ICU. Patient is DNR CCA with no intubation after discussion with patient, her and daughter near the bedside. Hospice services consulted. Patient seen by labourers. Troponins are normal. TSH elevated 7.84. Laboratory Results 04/13/22 21:05: WBC 11.6 H, RBC 4.49, Hgb 13.1, Hct 38.9, MCV 86.6, MCH 29.2, MCHC 33.7 D, RDW Std Deviation 51.4 H, RDW Coeff of Em 16.3 H, Plt Count 260, MPV 9.2, Immature Gran % (Auto) 1.100 H, Neut % (Auto) 69.4, Lymph % (Auto) 17.9 L, [place] % (Auto) 9.9, Eos % (Auto) 1.0, Baso % (Auto) 0.7, Absolute Neuts (auto) 8.0 H, Absolute Lymphs (auto) 2.07, Nucleated RBC % 0 04/13/22 21:05: PT 22.4 H, INR 2.0, APTT 31.5 04/13/22 21:05: Sodium 129 L, Potassium 2.5 L*, Chloride 88 L, Carbon Dioxide 2 9.0, Anion Gap 12, BUN 20 H, Creatinine 1.07 H, Estim Creat Clear Calc 48.25, Est GFR (MDRD) Af Amer 65, Est GFR (MDRD) Non-Af 54 L, BUN/Creatinine Ratio 18.7, Glucose 128 H, Calcium 7.6 L, Magnesium 1.1 L, Troponin I High Sens 22 04/14/22 00:04: Troponin I High Sens 27 04/14/22 00:04: Phosphorus 4.2 04/14/22 03:12: WBC 11.0, RBC 4.08 L, Hgb 12.0, Hct 35.8 L, MCV 87.7, MCH 29.4, MCHC 33.5, RDW Std Deviation 52.1 H, RDW Coeff of Em 16.3 H, Plt Count 184, MPV 9.0, Immature Gran % (Auto) 1.000 H, Neut % (Auto) 84.9 H, Lymph % (Auto) 6.4 L, [place] % (Auto) 7.1, Eos % (Auto) 0.1, Baso % (Auto) 0.5, Absolute Neuts (auto) 9.4 H, Absolute Lymphs (auto) 0.71 L, Nucleated RBC % 0 04/14/22 03:12: PT 21.4 H, INR 1.9 04/14/22 03:12: Sodium 129 L, Potassium 3.0 L, Chloride 93 L, Carbon Dioxide 27.0, Anion Gap 9, BUN 20 H, Creatinine 0.90, Estim Creat Clear Calc 57.37, Est GFR (MDRD) Af Amer 80, Est GFR (MDRD) Non-Af 66, BUN/Creatinine Ratio 22.1 H, Glucose 154 H, Calcium 6.8 L, Magnesium 1.9, Total Bilirubin 0.50, AST 26, ALT 10 L, Alkaline Phosphatase 113, Total Protein 4.3 L, Albumin 1.9 L, Globulin 2.4, Albumin/Globulin Ratio 0.8 L, TSH 7.84 H 04/14/22 03:12: Troponin I High Sens 29 04/14/22 06:24: POC Glucose 137 H #2. Hypotonic, isovolemic hyponatremia, hypokalemia, hypomagnesemia: Admission K+ 2.5, magnesium 1.1. Repeat potassium 3.0. Magnesium was replaced. Phosphorus is 4.2 normal.Patient is on IV fluid normal saline and potassium replacement. #3. Recurrent urinary retention with chronic indwelling Shukla catheter: Patient during recent hospitalizations has had serial issues with urinary retention, and she has Shukla catheter since January although gets monthly changed. #4. Recent C. difficile colitis:continue patient home oral vancomycin regimen. Patient currently is on PPI from home which needs to be tapered off. #5. End-stage chronic systolic CHF, status post AICD, class IV: As per patient, her EF recently decreased to 10% from 20%. Medical record review obtained. Patient on furosemide 40 mg twice daily, metolazone, spironolactone and warfarin. Not on beta-alex and NATE/ARB but patient is on mexiletine. Patient BP is in low 110s to low 100s. #6. Nonobstructive CAD: As mentioned above. #7. PAF: On amnio drip, warfarin. INR 1.9. #8. Chronic COPD: on oxygen with wean as tolerated to room air, initiate on ATC budesonide therapy, PRN albuterol, HOB, IS parameters. #9. Diabetes mellitus type II: Hold oral home regimen, ADA diet, accu checks w/ ISS. #10. Hypertension: Continue home regimen including spironolactone, metolazone, Lasix, PRN hydralazine. #11. Hyperlipidemia: continue patient on statin therapy. #12. Hypothyroidism: continue patient on levothyroxine regimen. TSH 7.84. Increase the levothyroxine dose to 50 mcg daily. #13. Anxiety and depression: We will continue home Cymbalta regimen. #14. GERD: We will continue patient on PPI and sucralfate but as noted above given C. difficile colitis history may need to de-escalate. #15. DVT prophylaxis: SCDs, continue patient Coumadin with INR trending. #16. CODE status: Patient DNR CCA with no intubation. Patient has health power of criminal attorney and daughter in agreement with that. Hospice consult is called. Total time of the visit including total time spent in counseling or coordination of care, (more than 50% of the total time, spent in obtaining medical information from nurses and other ancillary care providers,explaining to the patient about labs, imaging, diagnosis and management of active complex medical conditions), discussion with [employer] consultant, review of labs and imaging is 55 minutes Charges/Coding Visit Charges Inpatient E&M: 54684 Subs Hosp L3
--- NOTE | 2022-04-14 11:57 | CHAPLAIN ---
Type of Pastoral Visit _x__ Initial Visit ___ Follow-up Visit ___ On-call Visit ___ General Patient Visit ___ Spiritual Assessment ___ Family Conference ___ Bereavement ___ Rapid Response ___ Code Blue ___ Other (describe below) Pastoral Care Referral From _x__ Patient ___ Family ___ Nurse ___ Physician ___ Strategic Analyst ___ Shirt Operator ___ Other (describe below) Sacrament/Intervention _x__ Active listening ___ Anointing ___ Bahai ___ Bereavement ___ Communion _x__ Cherry exploration ___ ___ Life review _x__ Prayer ___ Reconciliation ___ Sacrament of Sick _x__ Supportive presence ___ Wedding ___ Other (describe below) Pastoral Comments patient is awake and alert; pt is welcoming of spiritual care which she has requested at this time; spouse and daughter are present with her; spouse speaks of deep cherry and active service in the [employer], specifically in [facility]; pt affirms her deep and active cherry and acknowledges that she has a short time to live and requests Anointing of the Sick by a technical asst; this enterprise manager explored her feelings about her condition; pt is clear in her decisions for speaking to hospice about final wishes and course of final days; prayer was offered; local [facility] was called for ministry of the technical asst; waiting on confirmation of time for technical asst arrival
--- NOTE | 2022-04-14 12:24 | CM.ED ---
Social Work [facility] here to evaluate patient. This social science research assistant completed chart review. Patient was at [facility] under skilled services for the past few days and prior was at another hospital. Patient wishes are to be on hospice and focus on end of life per chart. Social Work to continue to follow as needed. Yanique VICKERS, MARITA
--- NOTE | 2022-04-14 12:32 | CASEMGMT ---
Social Work Per [facility], patient wishes for placement with hospice services to the inpatient unit or an extended care facility. Nurse from the Inpatient Hospice Unit, Evelyn here evaluating patient for the inpatient unit. Yanique VICKERS, MARITA
--- NOTE | 2022-04-14 12:43 | PCM.CONS.C ---
Assessment & Plan Assessment/Plan (1) Cardiomyopathy: PLAN: The patient reports a history of a non-CAD related cardiomyopathy. She states to the best of her recollection she believes her LVEF has declined to approximately 10%. Her outside medical records are unavailable for review at this time. At the moment it may not be unreasonable to reassess her LV systolic function/LVEF with a transthoracic echocardiogram based upon her ongoing events to assist in decision-making process with respect to additional medical therapy/care. In the interim she should continue medical management as best as possible to assist with a non-CAD related cardiomyopathy. This would include agents such as beta-blockers unless otherwise contraindicated, her diuretics such as her furosemide and metolazone as deemed appropriate, additional diuretic such as spironolactone/Aldactone, afterload reducing agents such as either NATE inhibitor's or ARB's or agent such as Entresto and unless otherwise contraindicated, etc. (2) Chronic systolic CHF (congestive heart failure): PLAN: The patient does not appear to have ongoing acute CHF or pulmonary edema at this time. She can be reassessed as noted above. She will continue medical therapy as noted above with adjustment based upon her vital signs, electrolytes, renal function, etc. (3) PAF (paroxysmal atrial fibrillation): PLAN: The patient has a history of PAF. She has been on anticoagulant therapy with warfarin. She is also been on antiarrhythmic therapy. According to her H&P it appears she has been on medicines with mexiletine and amiodarone. She will continue anticoagulant therapy as deemed appropriate. (4) Ventricular dysrhythmia: PLAN: It appears the patient has been on dual antiarrhythmic therapy with mexiletine 150 mg p.o. twice daily and amiodarone 200 mg p.o. daily. At the current time the patient is on IV amiodarone. Despite this she still has evidence of ventricular tachycardia proceeding with ICD defibrillation-multiple episodes. Thus its not unreasonable that the patient be considered for evaluation at a tertiary care center by electrophysiology as to whether there are any other options for her with medications and/or potential any type of ablative options. (5) ICD (implantable cardioverter-defibrillator) in place: PLAN: The patient does have an ICD. It appears its been functioning appropriately. (6) Hypokalemia: PLAN: The patient's electrolytes are being replaced. Hopefully this will help with her underlying dysrhythmias. (7) HLD (hyperlipidemia): PLAN: The patient should continue medical management. It appears she has been on pravastatin 40 mg p.o. daily. (8) HTN (hypertension): PLAN: The patient's blood pressure can be followed as well. She has been on various medications that may affect her blood pressure with respect to lowering her blood pressure. These medicines can be adjusted as deemed appropriate based upon her ongoing clinical course. Addt'l Comments Overall, at the current time, the patient will remain in the ICU. She will remain on medical management which includes her IV amiodarone. She can have noninvasive valuation as deemed appropriate. She is considering hospice. Depending upon her wants and wishes she may want to transition to hospice care. If that occurs then she should give consideration to discontinuation of her ICD with respect to defibrillation capabilities. If she does not proceed to hospice then she is also pending transfer to [facility] in [place], [place] for further electrophysiology evaluation and care. Comment: Time spent in the patient's overall evaluation, examination, review of medical records, discussion with medical staff, etc.: 45 minutes. HPI Consult Data Date of Consult: 04/14/22 HPI Narrative HPI Narrative: EMILY TORRES, is a 71 year old white female who presents for cardiovascular consultation based upon concerns of a history of a non-CAD related cardiomyopathy, chronic systolic mediated CHF, near-syncope/syncope, cardiac dysrhythmia with ventricular dysrhythmia, status post multiple ICD discharges previously cared for in [place]. The patient states that she is currently been residing in an extended care facility. She states that she began to have recurrent episodes of her ICD discharging. Thus she was brought to the hospital for further evaluation and care. In the emergency department she was evaluated by the ED staff which included an ICD interrogation. Based upon their note it appeared the patient had 7 shocks performed the day of evaluation. She was reported while in the ED to have episodes of ventricular tachycardia with subsequent return to sinus rhythm. However, in the emergency department she was reported as having an additional 6 shocks or defibrillations. She was treated at that time with oral and IV potassium as well as initiation of IV amiodarone. According to their note she may have reportedly been on oral antiarrhythmic therapy with both mexiletine and amiodarone. The patient does not recall whether she was on these medications. According to the Emergency Department staff an attempt was made to have the patient transferred to her cardiovascular care group which would include transfer to [facility] in [facility] for further electrophysiology evaluation care. They were unable to accept the patient based upon lack of bed availability. Thus the patient was subsequently placed in the ICU. At the same time the patient states she has been considering hospice care and deactivating her defibrillator. At the present time the patient appears to be resting comfortably. She states that she has not been having any acute changes other than her cardiac dysrhythmia and her defibrillator firing with respect to other concerns of chest discomfort or other acute respiratory related issues. There has been no acute orthopnea or PND. She states she always has peripheral edema more so recently of the left upper extremity as opposed to the lower extremities. She does not recall undergoing any evaluation of the left left upper extremity for concerns of other etiologies such as thromboembolic disease. She states that she is still trying to consider whether she wants to pursue advanced cardiovascular care or consider hospice care. She states that she has a meeting set up with hospice to discuss her options. In the interim she has been in the ICU. She has been on IV amiodarone. It appears that her rhythm at the moment has been an electronic ventricular paced rhythm. Her ECG was reviewed. It does not appear to demonstrate an underlying electronic ventricular paced rhythm. Her previous cardiovascular care has been provided at other institutions. There are no other cardiovascular records available at this time for review. [facility] Medical History (Updated 04/14/22 @ 12:[address] Matt Guerrero MD) Anxiety and depression Cardiomyopathy Chronic back pain Cirrhosis COPD (chronic obstructive pulmonary disease) Coronary artery disease Diabetes mellitus, type 2 Emphysema lung Former tobacco use HLD (hyperlipidemia) HTN (hypertension) Hypothyroidism PAF (paroxysmal atrial fibrillation) Presence of combination internal cardiac defibrillator (ICD) and pacemaker Systolic CHF Ventricular arrhythmia Home Medications Lactobacillus rhamnosus GG 10 billion cell capsule (Culturelle) 1 cap PO BID HEALTHY GUT 04/14/22 [History Last Taken Unknown] amiodarone 200 mg tablet 200 mg DAILY HEART 04/14/22 [History Last Taken Unknown] calcium carb,cit ER 600 mg-vit D3 12.5 mcg (500 unit) tablet,ext.rel 2 tab PO BID VITAMIN 04/14/22 [History Last Taken Unknown] cholecalciferol (vitamin D3) 25 mcg (1,000 unit) capsule 25 mcg PO BID VITAMIN 04/14/22 [History Last Taken Unknown] doxycycline monohydrate 100 mg tablet 100 mg PO BID ATB 04/14/22 [History Last Taken Unknown] duloxetine 30 mg capsule,delayed release (Cymbalta) 30 mg PO BID DEPRESSION 04/14/22 [History Last Taken Unknown] ferrous sulfate 325 mg (65 mg iron) tablet,delayed release 325 mg PO QODAY IRON 04/14/22 [History Last Taken Unknown] furosemide 40 mg tablet (Lasix) 40 mg PO BID WATER PILL 04/14/22 [History Last Taken Unknown] levothyroxine 25 mcg tablet (Synthroid) 25 mcg PO DAILY THYROID 04/14/22 [History Last Taken Unknown] lidocaine 5 % topical patch 1 patch topical DAILY PAIN 04/14/22 [History Last Taken Unknown] metolazone 2.5 mg tablet 2.5 mg PO QODAY Check with primary doctor 04/14/22 [History Last Taken Unknown] mexiletine 150 mg capsule 150 mg BID Check with primary doctor 04/14/22 [History Last Taken Unknown] midodrine 10 mg tablet 10 mg PO TID INCREASE BP 04/14/22 [History Last Taken Unknown] omega-3 fatty acids 1,000 mg PO BID VITAMIN 04/14/22 [History Last Taken Unknown] omeprazole 40 mg capsule,delayed release 40 mg PO DAILY STOMACH 04/14/22 [History Last Taken Unknown] potassium chloride 20 mEq tablet,extended release 40 meq PO BID Check with primary doctor 04/14/22 [History Last Taken Unknown] pravastatin 40 mg tablet 40 mg PO QHS CHOLESTEROL 04/14/22 [History Last Taken Unknown] spironolactone 50 mg tablet (Aldactone) 50 mg PO DAILY WATER PILL 04/14/22 [History Last Taken Unknown] sucralfate 1 gram tablet (Carafate) 1 g PO DAILY STOMACH 04/14/22 [History Last Taken Unknown] tamsulosin 0.4 mg capsule (Flomax) 0.4 mg PO QHS URINARY 04/14/22 [History Last Taken Unknown] vancomycin 250 mg/5 mL oral syringe (FOR ORAL USE ONLY) 125 mg PO Q6H ATB 04/14/22 [History Last Taken Unknown] warfarin 2.5 mg tablet 2.5 mg PO DAILY BLOOD THINNER 04/14/22 [History Last Taken Unknown] Allergy/AdvReac Type Severity Reaction Status Date / Time carvedilol [From Coreg] Allergy NEEDS Verified 04/13/22 20:59 FOLLOW-UP Gadolinium-MRI Contrast Allergy NEEDS Verified 04/13/22 20:59 Medium FOLLOW-UP [contrast dye] Family History (Updated 04/14/22 @ 12:[address] Matt Guerrero MD) Mother Heart disease Father Heart disease Son Heart disease CHF (congestive heart failure) Other HLD (hyperlipidemia) Hypertension PAF (paroxysmal atrial fibrillation) Surgical History (Updated 04/14/22 @ 02:[address] Abbey Cunningham MD) History of cardiac radiofrequency ablation History of hysterectomy History of implantable cardioverter-defibrillator (ICD) placement S/P placement of cardiac pacemaker Social History (Updated 04/14/22 @ 02:[address] Abbey Cunningham MD) household members: spouse Smoking Status: Former smoker how long ago did patient quit smoking: Quit ~ 25 year prior, smoked 1 ppd since teen until quit. alcohol intake: never substance use type: does not use ROS Constitutional Constitutional: Reports as per HPI Eyes Eyes: Reports as per HPI ENT HEENT: Reports as per HPI Cardiovascular Cardiovascular: Reports palpitations and syncope Respiratory/Chest Respiratory/Chest: Reports as per HPI Gastrointestinal Gastrointestinal: Reports as per HPI Genitourinary Genitourinary: Reports as per HPI Musculoskeletal Musculoskeletal: Reports as per HPI Integumentary Integumentary: Reports as per HPI Neurologic Neurologic: Reports as per HPI Physical Exam Const alert, oriented x3 and no apparent distress Orientation / Consciousness: awake HEENT normocephalic, head/scalp atraumatic and hearing grossly normal bilaterally Eyes PERRL, EOMs intact bilaterally, conjunctivae normal and no scleral icterus Neck full ROM, supple and no JVD Carotids: normal carotid upstroke Resp normal respiratory effort and clear to auscultation bilaterally Cardio regular rate, regular rhythm, S1 normal heart sound and S2 normal heart sound GI normal to inspection, nondistended, normoactive bowel sounds Extremity General Extremity: edema left upper extremity Skin no rashes or lesions noted Psych mental status grossly normal Risk Stratification Risk Stratification Applicable: Yes Age >/= 65: Yes >/= 3 CAD Risk Factors (HTN, HLD, DM, family hx of CAD, or current smoker): Yes Aspirin Use in the Past 7 Days: No Severe Angina (>/= episodes in 24 hours): No EKG ST Changes >/= 0.5mm: No Positive Cardiac Marker: No ANDRES Risk Stratification Score: 2 ANDRES % Risk: 8% Risk Procedure Criteria Type of Procedure Procedure Type: Elective Elective Risks - COVID COVID Risk Discussion: The surgeon/proceduralist and patient have discussed in detail the risk of exposure to and/or potential harm posed by the COVID-19 virus with having a surgery/procedure at this time versus the risk of delaying the surgery/procedure. It is not possible to know either the risk of delaying the surgery or procedure or chance of getting an infection with perfect accuracy, but a joint decision was made between the patient and the surgeon/proceduralist to proceed at this time with the scheduled surgery/procedure as indicated on the consent form. Objective Data Vital Signs: Vital Signs Temp Pulse Resp BP Pulse Ox O2 Del Method O2 Flow Rate 97.1 F L 70 23 H 114/72 96 Room Air 2 04/14/22 08:00 04/14/22 12:00 04/14/22 12:00 04/14/22 12:00 04/14/22 12:00 04/14/22 12:00 04/14/22 09:17 Oxygen Flow Rate (L/min) 2 Oxygen Delivery Method Room Air Weight: 208 lb 8.917 oz Body Mass Index (BMI) 32.6 Intake & Output: Intake and Output for Last 24 Hours 04/12/22 04/13/22 04/14/22 23:59 23:59 23:59 Intake Total 203 / 203 253.64 / 253.64 Output Total 200 / 200 Balance 203 / 203 53.64 / 53.64 Lab / Micro Data Result Diagrams: 04/14/22 03:12 04/14/22 03:12 Labs: Laboratory Results - last 24 hr 04/13/22 21:05: WBC 11.6 H, RBC 4.49, Hgb 13.1, Hct 38.9, MCV 86.6, MCH 29.2, MCHC 33.7 D, RDW Std Deviation 51.4 H, RDW Coeff of Em 16.3 H, Plt Count 260, MPV 9.2, Immature Gran % (Auto) 1.100 H, Neut % (Auto) 69.4, Lymph % (Auto) 17.9 L, Laporte % (Auto) 9.9, Eos % (Auto) 1.0, Baso % (Auto) 0.7, Absolute Neuts (auto) 8.0 H, Absolute Lymphs (auto) 2.07, Nucleated RBC % 0 04/13/22 21:05: PT 22.4 H, INR 2.0, APTT 31.5 04/13/22 21:05: Sodium 129 L, Potassium 2.5 L*, Chloride 88 L, Carbon Dioxide 29.0, Anion Gap 12, BUN 20 H, Creatinine 1.07 H, Estim Creat Clear Calc 48.25, Est GFR (MDRD) Af Amer 65, Est GFR (MDRD) Non-Af 54 L, BUN/Creatinine Ratio 18.7, Glucose 128 H, Calcium 7.6 L, Magnesium 1.1 L, Troponin I High Sens 22 04/14/22 00:04: Troponin I High Sens 27 04/14/22 00:04: Phosphorus 4.2 04/14/22 03:12: WBC 11.0, RBC 4.08 L, Hgb 12.0, Hct 35.8 L, MCV 87.7, MCH 29.4, MCHC 33.5, RDW Std Deviation 52.1 H, RDW Coeff of Em 16.3 H, Plt Count 184, MPV 9.0, Immature Gran % (Auto) 1.000 H, Neut % (Auto) 84.9 H, Lymph % (Auto) 6.4 L, Laporte % (Auto) 7.1, Eos % (Auto) 0.1, Baso % (Auto) 0.5, Absolute Neuts (auto) 9.4 H, Absolute Lymphs (auto) 0.71 L, Nucleated RBC % 0 04/14/22 03:12: PT 21.4 H, INR 1.9 04/14/22 03:12: Sodium 129 L, Potassium 3.0 L, Chloride 93 L, Carbon Dioxide 27.0, Anion Gap 9, BUN 20 H, Creatinine 0.90, Estim Creat Clear Calc 57.37, Est GFR (MDRD) Af Amer 80, Est GFR (MDRD) Non-Af 66, BUN/Creatinine Ratio 22.1 H, Glucose 154 H, Calcium 6.8 L, Magnesium 1.9, Total Bilirubin 0.50, AST 26, ALT 10 L, Alkaline Phosphatase 113, Total Protein 4.3 L, Albumin 1.9 L, Globulin 2.4, Albumin/Globulin Ratio 0.8 L, TSH 7.84 H 04/14/22 03:12: Troponin I High Sens 29 04/14/22 06:24: POC Glucose 137 H Cardiology Labs/Tests 04/13/22 21:05: WBC 11.6 H, RBC 4.49, Hgb 13.1, Hct 38.9, MCV 86.6, MCH 29.2, MCHC 33.7 D, Plt Count 260, MPV 9.2, Immature Gran % (Auto) 1.100 H, Neut % (Auto) 69.4, Lymph % (Auto) 17.9 L, Laporte % (Auto) 9.9, Eos % (Auto) 1.0, Baso % (Auto) 0.7, Absolute Neuts (auto) 8.0 H, Nucleated RBC % 0 04/13/22 21:05: PT 22.4 H, INR 2.0, APTT 31.5 04/13/22 21:05: Sodium 129 L, Potassium 2.5 L*, Chloride 88 L, Carbon Dioxide 29.0, Anion Gap 12, BUN 20 H, Creatinine 1.07 H, Est GFR (MDRD) Af Amer 65, Est GFR (MDRD) Non-Af 54 L, BUN/Creatinine Ratio 18.7, Glucose 128 H, Calcium 7.6 L, Magnesium 1.1 L 04/14/22 00:04: Phosphorus 4.2 04/14/22 03:12: WBC 11.0, RBC 4.08 L, Hgb 12.0, Hct 35.8 L, MCV 87.7, MCH 29.4, MCHC 33.5, Plt Count 184, MPV 9.0, Immature Gran % (Auto) 1.000 H, Neut % (Auto) 84.9 H, Lymph % (Auto) 6.4 L, Laporte % (Auto) 7.1, Eos % (Auto) 0.1, Baso % (Auto) 0.5, Absolute Neuts (auto) 9.4 H, Nucleated RBC % 0 04/14/22 03:12: PT 21.4 H, INR 1.9 04/14/22 03:12: Sodium 129 L, Potassium 3.0 L, Chloride 93 L, Carbon Dioxide 27.0, Anion Gap 9, BUN 20 H, Creatinine 0.90, Est GFR (MDRD) Af Amer 80, Est GFR (MDRD) Non-Af 66, BUN/Creatinine Ratio 22.1 H, Glucose 154 H, Calcium 6.8 L, Magnesium 1.9, Total Bilirubin 0.50 Rhythm: Electronic ventricular paced rhythm EKG: Electronic ventricular paced rhythm Radiography Diagnostic Testing: Radiology Impression Chest X-Ray 04/13/22 22:07 IMPRESSION: Pleural effusions. Otherwise no acute findings. Electronically Signed: Elizabeth Garcia MD at 22:31 EST Reading Location ID and State: [id number] / Tel , Service support ,
--- NOTE | 2022-04-14 13:10 | CASEMGMT ---
Social Work This forensic social worker met with patient and patient spouse in room. Introduced self and forensic social worker role. Patient agreeable to speak with this forensic social worker and this forensic social worker able to speak openly with patient spouse present. This forensic social worker confirming that patient and patient spouse understand current plan for patient to admit to the Inpatient Hospice unit if patient is approved. Active support and listening provided. Patient with appropriate and engaged affect. Patient spouse appears to be processing information appropriately. Yanique VICKERS, DEVEN-S
--- NOTE | 2022-04-14 14:25 | CASEMGMT ---
Social Work Patient accepted to the Inpatient Hospice unit. Inpatient hospice nurseEvelyn set up transportation for 15:00-15:30 and communicated with nursing staff which number to call for report. Patient requesting for hand i tube bender from [facility] to come sooner. Telephone call to Angel Silveira, no answer. VM left. Telephone call to [facility] in [place] per Angel Silveira's note, Father Dewayne is able to come in 5min. This criminal justice social worker updated patient and patient family that Father Dewayne is in route to the hospital. Active support and listening provided to patient and patient family. Family and patient appear to be appropriately working through the end stage process. PLAN: Inpatient Hospice Unit - [facility]. Yanique VICKERS, DEVEN-S
--- NOTE | 2022-04-14 14:33 | DS.PCM_ITS ---
Providers Date of Admission: 04/13/22 Date of Discharge: 04/14/22 Primary Care Physician: Dr. Daysi Perea MD Consultations 04/14/22 02:53 Consult: Cardiology Routine Consulting Provider: Matt Guerrero Reason for Consult: VF, recurrent, device serially firing EMERGENT Consult: No Notified: Yes Date Notified: 04/14/22 Time Notified: 01:05 Method of Notification: Text Consult: Hospice / Palliative Care Routine Consulting Provider: [facility] Reason for Consult: Pt interested turning AICD off, hospice transition EMERGENT Consult: No Notified: Yes Date Notified: 04/14/22 Time Notified: 08:17 Method of Notification: Answering Service Reason For Visit: RECURRENT VF Diagnosis Discharge Diagnosis (1) Ventricular fibrillation: Status: Acute Code(s): I49.01 - Ventricular fibrillation (2) Hypokalemia: Status: Acute Code(s): E87.6 - Hypokalemia (3) HTN (hypertension): Status: Chronic Code(s): I10 - Essential (primary) hypertension (4) HLD (hyperlipidemia): Status: Acute Code(s): E78.5 - Hyperlipidemia, unspecified (5) PAF (paroxysmal atrial fibrillation): Status: Acute Code(s): I48.0 - Paroxysmal atrial fibrillation (6) Cardiomyopathy: Status: Acute Code(s): I42.9 - Cardiomyopathy, unspecified (7) Chronic systolic CHF (congestive heart failure): Status: Chronic Code(s): I50.22 - Chronic systolic (congestive) heart failure (8) Ventricular dysrhythmia: Status: Acute Code(s): I49.9 - Cardiac arrhythmia, unspecified (9) ICD (implantable cardioverter-defibrillator) in place: Status: Acute Code(s): Z95.810 - Presence of automatic (implantable) cardiac defibrillator Plan The patient is a 71 y/o F was admitted with chest pain sudden onset with defibrillated fired about 15-20 times on the day of admission. Chest pain started at sitting position. Patient also some mild nausea and vomiting. She had recent AICD inserted during recent hospitalization at [facility] and was discharged to [facility] #1. Recurrent near syncope and syncopal events secondary to cardiac ventricular rhythm/ventricular fibrillation status post prior AICD placement with recurrent device firing: Patient is being admitted in ICU. Patient is DNR CCA with no intubation after discussion with patient, her and daughter near the bedside. Hospice services consulted. Patient seen by livestock handler. Troponins are normal. TSH elevated 7.84. Patient was accepted as inpatient hospice care. Patient is discharged to inpatient hospice. Hospice medication as per hospice attending physician. #2. Hypotonic, isovolemic hyponatremia, hypokalemia, hypomagnesemia: Admission K+ 2.5, magnesium 1.1. Repeat potassium 3.0. Magnesium was replaced. Phosphorus is 4.2 normal.Patient is on IV fluid normal saline and potassium replacement. #3. Recurrent urinary retention with chronic indwelling Shukla catheter: Patient during recent hospitalizations has had serial issues with urinary retention, and she has Shukla catheter since January although gets monthly changed. #4. Recent C. difficile colitis:continue patient home oral vancomycin regimen. Patient currently is on PPI from home which needs to be tapered off. #5. End-stage chronic systolic CHF, status post AICD, class IV: As per patient, her EF recently decreased to 10% from 20%. Medical record review obtained. Patient on furosemide 40 mg twice daily, metolazone, spironolactone and warfarin. Not on beta-alex and NATE/ARB but patient is on mexiletine. Patient BP is in low 110s to low 100s. #6. Nonobstructive CAD: As mentioned above. #7. PAF: On amnio drip, warfarin. INR 1.9. #8. Chronic COPD: on oxygen with wean as tolerated to room air, initiate on ATC budesonide therapy, PRN albuterol, HOB, IS parameters. #9. Diabetes mellitus type II: Hold oral home regimen, ADA diet, accu checks w/ ISS. #10. Hypertension: Continue home regimen including spironolactone, metolazone, Lasix, PRN hydralazine. #11. Hyperlipidemia: continue patient on statin therapy. #12. Hypothyroidism: continue patient on levothyroxine regimen. TSH 7.84. Increase the levothyroxine dose to 50 mcg daily. #13. Anxiety and depression: We will continue home Cymbalta regimen. #14. GERD: We will continue patient on PPI and sucralfate but as noted above given C. difficile colitis history may need to de-escalate. #15. DVT prophylaxis: SCDs, continue patient Coumadin with INR trending. #16. CODE status: Patient DNR CCA with no intubation. Patient has health ashley r of compliance attorney and daughter in agreement with that. Hospice consult is called. Discharge to hospice care. Medications at Discharge Home Medications Lactobacillus rhamnosus GG 10 billion cell capsule (Culturelle) 1 cap PO BID HEALTHY GUT 04/14/22 amiodarone 200 mg tablet 200 mg DAILY HEART 04/14/22 calcium carb,cit ER 600 mg-vit D3 12.5 mcg (500 unit) tablet,ext.rel 2 tab PO BID VITAMIN 04/14/22 cholecalciferol (vitamin D3) 25 mcg (1,000 unit) capsule 25 mcg PO BID VITAMIN 04/14/22 doxycycline monohydrate 100 mg tablet 100 mg PO BID ATB 04/14/22 duloxetine 30 mg capsule,delayed release (Cymbalta) 30 mg PO BID DEPRESSION ferrous sulfate 325 mg (65 mg iron) tablet,delayed release 325 mg PO QODAY IRON 04/14/22 furosemide 40 mg tablet (Lasix) 40 mg PO BID WATER PILL 04/14/22 levothyroxine 25 mcg tablet (Synthroid) 25 mcg PO DAILY THYROID 04/14/22 lidocaine 5 % topical patch 1 patch topical DAILY PAIN 04/14/22 metolazone 2.5 mg tablet 2.5 mg PO QODAY Check with primary doctor 04/14/22 mexiletine 150 mg capsule 150 mg BID Check with primary doctor 04/14/22 midodrine 10 mg tablet 10 mg PO TID INCREASE BP 04/14/22 omega-3 fatty acids 1,000 mg PO BID VITAMIN 04/14/22 omeprazole 40 mg capsule,delayed release 40 mg PO DAILY STOMACH 04/14/22 potassium chloride 20 mEq tablet,extended release 40 meq PO BID Check with primary doctor 04/14/22 pravastatin 40 mg tablet 40 mg PO QHS CHOLESTEROL 04/14/22 spironolactone 50 mg tablet (Aldactone) 50 mg PO DAILY WATER PILL 04/14/22 sucralfate 1 gram tablet (Carafate) 1 g PO DAILY STOMACH 04/14/22 tamsulosin 0.4 mg capsule (Flomax) 0.4 mg PO QHS URINARY 04/14/22 vancomycin 250 mg/5 mL oral syringe (FOR ORAL USE ONLY) 125 mg PO Q6H ATB 04/14/22 warfarin 2.5 mg tablet 2.5 mg PO DAILY BLOOD THINNER 04/14/22 Physical Exam Narrative Please see the progress note of the same date for physical exam findings. Weight / BMI Weight Weight: 208 lb 8.917 oz Body Mass Index (BMI) 32.6 ABG / Lab / Microbiology Data Result Diagrams: 04/14/22 03:12 04/14/22 03:12 Laboratory: Laboratory Results - last 24 hr 04/13/22 21:05: WBC 11.6 H, RBC 4.49, Hgb 13.1, Hct 38.9, MCV 86.6, MCH 29.2, MCHC 33.7 D, RDW Std Deviation 51.4 H, RDW Coeff of Em 16.3 H, Plt Count 260, MPV 9.2, Immature Gran % (Auto) 1.100 H, Neut % (Auto) 69.4, Lymph % (Auto) 17.9 L, [place] % (Auto) 9.9, Eos % (Auto) 1.0, Baso % (Auto) 0.7, Absolute Neuts (auto) 8.0 H, Absolute Lymphs (auto) 2.07, Nucleated RBC % 0 04/13/22 21:05: PT 22.4 H, INR 2.0, APTT 31.5 04/13/22 21:05: Sodium 129 L, Potassium 2.5 L*, Chloride 88 L, Carbon Dioxide 29.0, Anion Gap 12, BUN 20 H, Creatinine 1.07 H, Estim Creat Clear Calc 48.25, Est GFR (MDRD) Af Amer 65, Est GFR (MDRD) Non-Af 54 L, BUN/Creatinine Ratio 18.7, Glucose 128 H, Calcium 7.6 L, Magnesium 1.1 L, Troponin I High Sens 22 04/14/22 00:04: Troponin I High Sens 27 04/14/22 00:04: Phosphorus 4.2 04/14/22 03:12: WBC 11.0, RBC 4.08 L, Hgb 12.0, Hct 35.8 L, MCV 87.7, MCH 29.4, MCHC 33.5, RDW Std Deviation 52.1 H, RDW Coeff of Em 16.3 H, Plt Count 184, MPV 9.0, Immature Gran % (Auto) 1.000 H, Neut % (Auto) 84.9 H, Lymph % (Auto) 6.4 L, [place] % (Auto) 7.1, Eos % (Auto) 0.1, Baso % (Auto) 0.5, Absolute Neuts (auto) 9.4 H, Absolute Lymphs (auto) 0.71 L, Nucleated RBC % 0 04/14/22 03:12: PT 21.4 H, INR 1.9 04/14/22 03:12: Sodium 129 L, Potassium 3.0 L, Chloride 93 L, Carbon Dioxide 27.0, Anion Gap 9, BUN 20 H, Creatinine 0.90, Estim Creat Clear Calc 57.37, Est GFR (MDRD) Af Amer 80, Est GFR (MDRD) Non-Af 66, BUN/Creatinine Ratio 22.1 H, Glucose 154 H, Calcium 6.8 L, Magnesium 1.9, Total Bilirubin 0.50, AST 26, ALT 10 L, Alkaline Phosphatase 113, Total Protein 4.3 L, Albumin 1.9 L, Globulin 2.4, Albumin/Globulin Ratio 0.8 L, TSH 7.84 H 04/14/22 03:12: Troponin I High Sens 29 04/14/22 06:24: POC Glucose 137 H Radiography Diagnostic Testing: Radiology Impression Chest X-Ray 04/13/22 22:07 IMPRESSION: Pleural effusions. Otherwise no acute findings. Electronically Signed: Elizabeth Garcia MD at 22:31 EST Reading Location ID and State: [id number] / Tel , Service support , Meaningful Use Info Meaningful Use Diagnoses (Choose all that apply): None applicable Discharge Plan Admission Admit Date/Time: 04/13/22 23:47 Attending Provider: Donell Barcenas Primary Care Provider: Daysi Perea Consulting Providers: Matt Guerrero ; Abbey Cunningham ; Sophie Harley ; Jvue Deleon ; Corie Lima ; Marisol Fraser ; Amanda Meneses COATER OPERATOR Discharge Orders/Prescriptions Prescriptions: No Action furosemide [Lasix] 40 mg Tablet 40 mg PO BID metolazone 2.5 mg Tablet 2.5 mg PO QODAY pravastatin 40 mg Tablet 40 mg PO QHS amiodarone 200 mg tablet 200 mg DAILY sucralfate [Carafate] 1 gram Tablet 1 g PO DAILY warfarin [Coumadin] 2.5 mg Tablet 2.5 mg PO DAILY omeprazole 40 mg Capsule,Delayed Release(Dr/Ec) 40 mg PO DAILY doxycycline monohydrate 100 mg Tablet 100 mg PO BID levothyroxine [Synthroid] 25 mcg Tablet 25 mcg PO DAILY tamsulosin [Flomax] 0.4 mg Capsule 0.4 mg PO QHS mexiletine 150 mg Capsule 150 mg BID spironolactone [Aldactone] 50 mg Tablet 50 mg PO DAILY midodrine 10 mg Tablet 10 mg PO TID Rx Instructions: do not give last dose of day after 6PM or within 4 hrs of bedtime duloxetine [Cymbalta] 30 mg Capsule,Delayed Release(Dr/Ec) 30 mg PO BID vancomycin 250 mg/5 mL Syringe 125 mg PO Q6H potassium chloride 20 mEq Tablet Extended Release 40 meq PO BID lidocaine 5 % Adhesive Patch,Medicated 1 patch TOPICAL DAILY Rx Instructions: leave on most painful area for up to 12 hrs ferrous sulfate 325 mg (65 mg iron) Tablet,Delayed Release (Dr/Ec) 325 mg PO QODAY Culturelle 10 billion cell Capsule 1 cap PO BID cholecalciferol (vitamin D3) 25 mcg (1,000 unit) Capsule 25 mcg PO BID Fish Oil Capsule 1,000 mg PO BID calcium carb and citrate-vitD3 600 mg-12.5 mcg (500 unit) Tablet Extended Release 2 tab PO BID Referrals / Follow Up: [facility] Doctor,Out of [Non-Staff] - Daysi Perea MD [Primary Care Provider] - Disposition Discharge Orders: Discharge Patient (Routine); Ordered 04/14/22 Ordered By: Dr. Donell Barcenas Charges/Coding Addendum Addendum: Please cancel the billing charge of the progress note of the same date. Visit Charges Inpatient E&M: 95387 Disch Hosp >30min
--- NOTE | 2022-04-14 14:43 | NURSING ---
Markel alarcon RN programmed D-Fib off at this time.
--- NOTE | 2022-04-14 14:57 | CASEMGMT ---
Social Work Notified by nursing staff that patient passed. Telephone call to Inpatient Hospice Unit, [facility]. [facility] updated that patient is now . [facility] to cancel transportation that was to come and pick patient up. Medical team updated on above. Yanique VICKERS, MARITA
--- NOTE | 2022-04-14 15:15 | PCM.DEATH ---
Preliminary Cause of Preliminary Cause of Preliminary Cause of : Ventricular tachycardia/fibrillation. Date of Admission: 04/13/22 Date of : 04/14/22 Principle Diagnosis Problem List: Active and Suspected Problems (Updated 04/14/22 @ 12:[address] Matt Guerrero MD) PAF (paroxysmal atrial fibrillation) (Acute) HLD (hyperlipidemia) (Acute) ICD (implantable cardioverter-defibrillator) in place (Acute) Ventricular dysrhythmia (Acute) Cardiomyopathy (Acute) Ventricular fibrillation (Acute) Hypokalemia (Acute) Hypomagnesemia (Acute) Hospital Course The patient is a 71 y/o F was admitted with chest pain sudden onset with defibrillated fired about 15-20 times on the day of admission.? Chest pain started at sitting position.? Patient also some mild nausea and vomiting.? She had recent AICD inserted during recent hospitalization at [facility] and was discharged to [facility] #1.? Recurrent near syncope and syncopal events secondary to cardiac ventricular rhythm/ventricular fibrillation status post prior AICD placement with recurrent device firing: Patient is being admitted in ICU.? Patient is DNR CCA with no intubation after discussion with patient, her and daughter near the bedside.? Hospice services consulted.? Patient seen by associate veterinarian.? Troponins are normal. ? TSH elevated 7.84. Patient and family member are in agreement with hospice care. I signed DNRCC paper. Patient was accepted as inpatient hospice care and was at pickup time was between 3 to 3:30 PM.? But before that about 14 days 50s she had V. tach. AICD was turned off as she has hospice. She peacefully at 1452 hrs. on 04/14/2022 ?#2.? Hypotonic, isovolemic hyponatremia, hypokalemia, hypomagnesemia: Admission K+ 2.5, magnesium 1.1.? Repeat potassium 3.0.? Magnesium was replaced.? Phosphorus is 4.2 normal.Patient is on IV fluid normal saline and potassium replacement. #3.? Recurrent urinary retention with chronic indwelling Shukla catheter: Patient during recent hospitalizations has had serial issues with urinary retention, and she has Shukla catheter since January although gets monthly changed. #4.? Recent C. difficile colitis:continue patient home oral vancomycin regimen.? Patient currently is on PPI from home which needs to be tapered off. #5.? End-stage chronic systolic CHF, status post AICD, class IV: As per patient, her EF recently decreased to 10% from 20%.? Medical record review obtained.? Patient on furosemide 40 mg twice daily, metolazone, spironolactone and warfarin.? Not on beta-alxe and NATE/ARB but patient is on mexiletine.? Patient BP is in low 110s to low 100s. #6.? Nonobstructive CAD: As mentioned above. #7.? PAF: On amnio drip, warfarin.? INR 1.9. #8.? Chronic COPD:? on oxygen with wean as tolerated to room air, initiate on ATC budesonide therapy, PRN albuterol, HOB, IS parameters. #9.? Diabetes mellitus type II: Hold oral home regimen, ADA diet, accu checks w/ ISS. #10.? Hypertension: Continue home regimen including spironolactone, metolazone, Lasix, PRN hydralazine. #11.? Hyperlipidemia: continue patient on statin therapy. #12.? Hypothyroidism: continue patient on levothyroxine regimen.? TSH 7.84.? Increase the levothyroxine dose to 50 mcg daily. #13.? Anxiety and depression: We will continue home Cymbalta regimen. #14.? GERD: We will continue patient on PPI and sucralfate but as noted above given C. difficile colitis history may need to de-escalate. #15.? DVT prophylaxis: SCDs, continue patient Coumadin with INR trending. #16.? CODE status:? Patient DNR CCA with no intubation.? Patient has health power of criminal attorney and daughter in agreement with that.? Hospice consult is called. Discharge to hospice care. Addendum Addendum: Please cancel the billing charge of discharge summary. Visit Charges Inpatient E&M: [id number] Disch Hosp >30min
--- NOTE | 2022-04-14 16:02 | CHAPLAIN ---
Type of Pastoral Visit ___ Initial Visit ___ Follow-up Visit ___ On-call Visit ___ General Patient Visit ___ Spiritual Assessment ___ Family Conference _x__ Bereavement ___ Rapid Response ___ Code Blue ___ Other (describe below) Pastoral Care Referral From ___ Patient ___ Family ___ Nurse ___ Physician _x__ Inter Fold Roll Cutter ___ Restaurant Front Manager ___ Other (describe below) Sacrament/Intervention ___ Active listening ___ Anointing ___ Mu-Ism _x__ Bereavement ___ Communion ___ Cherry exploration ___ ___ Life review ___ Prayer ___ Reconciliation ___ Sacrament of Sick _x__ Supportive presence ___ Wedding ___ Other (describe below) Pastoral Comments notified by SW that patient had passed just a few minutes after vendor management consultant arrived to do Last Rites; went to room to offer presence and support; family members very appreciative of support by vendor management consultant, staff, and this electrical solderer during this time; by all reports this patient had a peaceful and quick ; gave presence and time to listen to family;
== END 2022-04-14 16:27 | DRG 309 ==
LOC: ED 04-14 00:28 → ICU 04-14 07:09
PROVIDERS: Admitting Provider Family Medicine; Emergency Provider Emergency Medicine; PCP Family Medicine; Visit Provider Internal Medicine
DX: I49.01 Ventricular fibrillation (principal); I50.22 Chronic systolic (congestive) heart failure; A04.72 Enterocolitis due to Clostridium difficile, not specified as recurrent; E87.1 Hypo-osmolality and hyponatremia; I42.9 Cardiomyopathy, unspecified; I11.0 Hypertensive heart disease with heart failure; J44.9 Chronic obstructive pulmonary disease, unspecified; E11.9 Type 2 diabetes mellitus without complications; I48.0 Paroxysmal atrial fibrillation; K21.9 Gastro-esophageal reflux disease without esophagitis; E78.5 Hyperlipidemia, unspecified; E03.9 Hypothyroidism, unspecified; E87.6 Hypokalemia; I25.10 Atherosclerotic heart disease of native coronary artery without angina pectoris; E83.42 Hypomagnesemia; F41.9 Anxiety disorder, unspecified; F32.A Depression, unspecified; R33.9 Retention of urine, unspecified; Z66 Do not resuscitate; Z95.810 Presence of automatic (implantable) cardiac defibrillator; Z79.01 Long term (current) use of anticoagulants; Z79.84 Long term (current) use of oral hypoglycemic drugs; Z79.899 Other long term (current) drug therapy; Z87.891 Personal history of nicotine dependence
CPT/HCPCS: 71046; 80048; 80053; 82962; 83735; 84100; 84443; 84484; 85025; 85610; 85730; 93005; 94640; 97802; 99252; 99285; J7030; A4216; G0463; J2405